=== PATIENT | female | born 1995 | race Caucasian/White ===

== ENCOUNTER → 2018-03-26 16:54 | Outpatient (CLI) | payer OTHER, SELFPAY ==
[2015-02-24 20:43] VITALS: BMI 30.2
[2018-03-26 18:17] LABS: Follicle Stimulating Hormone 6.4 mIU/mL; Luteinizing Hormone 12.2 mIU/mL; Prolactin 16.5 ng/mL
[2018-03-30 14:07] LABS: Testosterone, Free 1.37 ng/dL (0.10-0.85); Testosterone, Total 66 ng/dL (8-48)
[2018-03-30 20:30] LABS: Testosterone, % Free 2.08 % (0.50-2.80)
[2018-04-02 09:11] LABS: HPV Reflexed? NOT INDICATED
== END ==
PROVIDERS: Visit Provider Obstetrics & Gynecology
DX: N92.5 Other specified irregular menstruation (principal); Z12.4 Encounter for screening for malignant neoplasm of cervix
CPT/HCPCS: 83001; 83002; 84144; 84146; 84402; 84403; 88175; G0145

== ENCOUNTER → 2018-06-04 16:15 | Outpatient (CLI) | payer OTHER, SELFPAY ==
[2015-02-24 20:43] VITALS: BMI 30.2
[2018-06-04 18:16] LABS: Progesterone Level 0.44 ng/mL (See Comment)
== END ==
PROVIDERS: Visit Provider Obstetrics & Gynecology
DX: N92.5 Other specified irregular menstruation (principal)
CPT/HCPCS: 36415; 84144

== ENCOUNTER → 2018-07-19 | Outpatient (CLI) | payer OTHER, SELFPAY ==
[2015-02-24 20:43] VITALS: BMI 30.2
[2018-07-19 16:30] LABS: Progesterone Level 3.78 ng/mL (See Comment)
== END | disposition home or self-care (01) ==
LOC: WOBLAB 14:33
PROVIDERS: Visit Provider Obstetrics & Gynecology
DX: N92.5 Other specified irregular menstruation (principal)
CPT/HCPCS: 36415; 84144

== ENCOUNTER → 2018-08-16 | Outpatient (CLI) | payer OTHER, SELFPAY ==
[2018-08-16 16:09] LABS: Progesterone Level 0.52 ng/mL (See Comment)
== END | disposition home or self-care (01) ==
LOC: WOBLAB 13:12
PROVIDERS: Visit Provider Obstetrics & Gynecology
DX: E28.2 Polycystic ovarian syndrome (principal)
CPT/HCPCS: 36415; 84144

== ENCOUNTER → 2019-04-09 12:32 | Outpatient (CLI) | payer OTHER, SELFPAY ==
[2019-04-09 11:22] VITALS: BMI 30.2
[2019-04-09 15:55] LABS: Chlamydia Trachomatis by PCR Negative (Negative); Neisserai gonorrhoeae by PCR Negative (Negative); Probe Check PASS; Sample Adequacy Control PASS; Specimen Processing Control PASS
== END ==
PROVIDERS: PCP Student in an Organized Health Care Education/Training Program; Referring Provider Nurse Practitioner Women's Health; Visit Provider Nurse Practitioner Women's Health
DX: Z34.00 Encounter for supervision of normal first pregnancy, unspecified trimester (principal)
CPT/HCPCS: 87086; 87088; 87491; 87591

== ENCOUNTER → 2019-05-09 | Outpatient (CLI) | payer OTHER, SELFPAY ==
[2019-04-09 11:22] VITALS: BMI 30.2
[2019-05-09 11:28] LABS: Absolute Lymphocyte Count 2.44 X10^3/uL (0.83-4.51); Absolute Neutrophil Count 6.3 X10^3/uL (2.0-7.7); Basophil# 0.02 X10^3/uL; Basophil% 0.2 % (0-1); Eosinophils% 1.1 % (0-5); Hematocrit 34.4 % (37-47); Hemoglobin 12.1 g/dL (12.0-15.0); Lymphocyte # 2.44 X10^3/ul (4.0); Lymphocyte % 25.7 % (19-41); Mean Corp Hgb Conc 35.2 g/dL (32-36); Mean Corpuscular Hgb 31.1 pg (27.0-32.0); Mean Corpuscular Volume 88.4 fL (81-99); Mean Platelet Vol. 9.2 fl (6.2-12.0); Monocyte# 0.55 X10^3/uL; Monocyte% 5.8 % (0-10); NRBC Flagged by Analyzer 0 % (0-5); Neutrophil # 6.32 X10^3/uL (2.7-7.7); Neutrophil % 66.7 % (47-70); Platelet Count 278 K/mm3 (150-450); RBC Distribution Width CV 12.2 % (11.6-14.6); RBC Distribution Width SD 39.1 fl (35.1-43.9); Red Blood Count 3.89 M/mm3 (4.2-5.4); White Blood Count 9.5 K/mm3 (4.4-11.0)
[2019-05-09 11:37] LABS: Glucose Challenge Gest 1H 50g 126 mg/dL (70-140)
[2019-05-09 12:23] LABS: Amphetamine Urine VISTA NEGATIVE (<1000 ng/mL); Barbiturate Urine VISTA NEGATIVE (< 200 ng/mL); Benzodiazepine Urine VISTA NEGATIVE (< 200 ng/mL); Cocaine Urine VISTA NEGATIVE (< 300 ng/mL); Ecstacy Urine VISTA NEGATIVE (< 500 ng/mL); Methadone Urine VISTA NEGATIVE (< 300 ng/mL); PCP Urine VISTA NEGATIVE (< 25 ng/mL); THC Urine VISTA NEGATIVE (< 50 ng/mL); Vista UDS pH Range 7
[2019-05-09 12:32] LABS: HIV - WCH Non-Reactive (Nonreactive); Hepatitis B Surface Antigen Non-Reactive (Nonreactive); Hepatitis C Antibody Non-Reactive (Nonreactive); Rubella IgG 142.2 IU/mL
[2019-05-15 01:05] LABS: Rapid Plasmin Reagin (RPR) NONREACTIVE (NONREACTIVE)
== END | disposition home or self-care (01) ==
LOC: PAVLAB 10:56
PROVIDERS: Nurse Practitioner Women's Health; PCP Student in an Organized Health Care Education/Training Program; Referring Provider Obstetrics & Gynecology; Visit Provider Obstetrics & Gynecology
DX: O99.89 Other specified diseases and conditions complicating pregnancy, childbirth and the puerperium (principal); Z20.821 Contact with and (suspected) exposure to Zika virus; Z3A.00 Weeks of gestation of pregnancy not specified
CPT/HCPCS: 36415; 80307; 82950; 85025; 86592; 86703; 86762; 86803; 86850; 86900; 86901; 87340

== ENCOUNTER → 2019-06-06 | Outpatient (CLI) | payer OTHER, SELFPAY ==
[2019-06-06 10:46] VITALS: BMI 30.2
== END | disposition home or self-care (01) ==
PROVIDERS: PCP Student in an Organized Health Care Education/Training Program; Referring Provider Obstetrics & Gynecology; Visit Provider Obstetrics & Gynecology
DX: Z36.9 Encounter for antenatal screening, unspecified (principal)
CPT/HCPCS: 36415

== ENCOUNTER → 2019-08-28 | Outpatient (CLI) | payer OTHER, SELFPAY ==
[2019-07-30 11:21] VITALS: BMI 30.2
[2019-08-28 12:45] LABS: Absolute Lymphocyte Count 2.32 X10^3/uL (0.83-4.51); Absolute Neutrophil Count 7.8 X10^3/uL (2.0-7.7); Basophil# 0.02 X10^3/uL; Basophil% 0.2 % (0-1); Eosinophil# 0.04 X10^3/uL; Eosinophils% 0.4 % (0-5); Hematocrit 29.3 % (37-47); Hemoglobin 10.1 g/dL (12.0-15.0); Lymphocyte # 2.32 X10^3/ul (4.0); Lymphocyte % 21.4 % (19-41); Mean Corp Hgb Conc 34.5 g/dL (32-36); Mean Corpuscular Hgb 31.9 pg (27.0-32.0); Mean Corpuscular Volume 92.4 fL (81-99); Mean Platelet Vol. 9.2 fl (6.2-12.0); Monocyte# 0.52 X10^3/uL; Monocyte% 4.8 % (0-10); NRBC Flagged by Analyzer 0 % (0-5); Neutrophil # 7.79 X10^3/uL (2.7-7.7); Neutrophil % 71.7 % (47-70); Platelet Count 245 K/mm3 (150-450); RBC Distribution Width CV 12.9 % (11.6-14.6); RBC Distribution Width SD 42.9 fl (35.1-43.9); Red Blood Count 3.17 M/mm3 (4.2-5.4); White Blood Count 10.9 K/mm3 (4.4-11.0)
[2019-08-28 13:00] LABS: Glucose Challenge Gest 1H 50g 135 mg/dL (70-140)
== END | disposition home or self-care (01) ==
LOC: PAVLAB 12:32
PROVIDERS: PCP Student in an Organized Health Care Education/Training Program; Referring Provider Obstetrics & Gynecology; Visit Provider Obstetrics & Gynecology
DX: Z34.01 Encounter for supervision of normal first pregnancy, first trimester (principal)
CPT/HCPCS: 36415; 82950; 85025

== ENCOUNTER → 2019-09-01 09:50 | Outpatient (CLI) | payer OTHER, SELFPAY ==
[2019-08-28 12:51] VITALS: BMI 30.2
[2019-09-01 11:22] LABS: Glucose GTT-Gestation. Fasting 95 mg/dL (<105)
[2019-09-01 11:36] LABS: Glucose GTT-Gestational 1 Hr 194 mg/dL (<190)
[2019-09-01 12:58] LABS: Glucose GTT-Gestational 2 Hr 166 mg/dL (<165)
[2019-09-01 14:30] LABS: Glucose GTT-Gestational 3 Hr 132 L (<145)
== END ==
PROVIDERS: PCP Student in an Organized Health Care Education/Training Program; Referring Provider Obstetrics & Gynecology; Visit Provider Obstetrics & Gynecology
DX: O99.810 Abnormal glucose complicating pregnancy (principal); Z3A.00 Weeks of gestation of pregnancy not specified
CPT/HCPCS: 36415; 82951; 82952

== ENCOUNTER → 2019-10-07 | Outpatient (CLI) | payer OTHER, SELFPAY ==
[2019-10-03 08:09] VITALS: BMI 39.9
[2019-10-03 16:03] VITALS: BMI 39.9
--- NOTE | 2019-10-07 08:00 | US_ITS ---
STUDY: SECOND AND THIRD TRIMESTER OBSTETRICAL ULTRASOUND - LIMITED REASON FOR EXAM: Female, 24 years old GROWTH -- HX OF DIABETES LMP: February 10, 2019 PRIOR ULTRASOUND: None. TECHNIQUE: Transabdominal TECHNICAL QUALITY: Adequate. FINDINGS: There is a single intrauterine fetus. The fetus is in a cephalic presentation. There is demonstrated cardiac activity with a heart rate of 156 bpm. There is a normal amniotic fluid volume. The largest amniotic fluid pocket measures 5.15 cm. The amniotic fluid index (MODESTA) is 19.24 cm. The placenta is posterior. There are Grade 1 placental changes. There is nonvisualization of the cervix for the bladder was not filled at the time of the examination. BIOMETRY: BPD: 8.69 cm: 35 weeks, 0 days HC: 31.47 cm: 35 weeks, 2 days AC: 30.19 cm: 34 weeks, 1 days FL: 6.59 cm: 33 weeks, 6 days Age by LMP: 34 weeks, 1 days. MELISSA by LMP: November 17, 2019. age by current US: 34 weeks, 4 days. MELISSA by current US: November 14, 2019. Estimated weight: 2400 grams, +/- 355 grams, 48.92 percentile. US/OB Limited With Biometrics IMPRESSION: Single intrauterine with an estimated gestational age by ultrasound of 34 weeks and 4 days and an MELISSA of November 14, 2019. Electronically Signed: Ranjana Lynn MD at 20:49 EDT Tel , Service support ,
== END | disposition home or self-care (01) ==
LOC: OPUS 08:00
PROVIDERS: PCP Student in an Organized Health Care Education/Training Program; Referring Provider Obstetrics & Gynecology; Visit Provider Obstetrics & Gynecology
DX: O24.419 Gestational diabetes mellitus in pregnancy, unspecified control (principal); Z3A.00 Weeks of gestation of pregnancy not specified
CPT/HCPCS: 76816

== ENCOUNTER 2019-10-08 10:30 | Outpatient (RCR) | payer OTHER, SELFPAY ==
[2019-08-28 12:51] VITALS: BMI 30.2
[2019-09-09 14:55] VITALS: BMI 30.2
== END 2019-10-08 23:59 | disposition home or self-care (01) ==
LOC: DC 10:30
PROVIDERS: PCP Student in an Organized Health Care Education/Training Program; Visit Provider Nurse Practitioner Women's Health
DX: Z71.3 Dietary counseling and surveillance (principal); O24.419 Gestational diabetes mellitus in pregnancy, unspecified control; Z3A.00 Weeks of gestation of pregnancy not specified
CPT/HCPCS: 97802; G0108

== ENCOUNTER → 2019-10-10 | Outpatient (CLI) | payer OTHER, SELFPAY ==
[2019-10-10 08:51] VITALS: BMI 39.9
[2019-10-10 10:12] LABS: Absolute Lymphocyte Count 2.47 X10^3/uL (0.83-4.51); Absolute Neutrophil Count 6.1 X10^3/uL (2.0-7.7); Basophil# 0.02 X10^3/uL; Basophil% 0.2 % (0-1); Eosinophil# 0.08 X10^3/uL; Eosinophils% 0.9 % (0-5); Hematocrit 32.4 % (37-47); Hemoglobin 11.1 g/dL (12.0-15.0); Lymphocyte # 2.47 X10^3/ul (4.0); Lymphocyte % 26.5 % (19-41); Mean Corp Hgb Conc 34.3 g/dL (32-36); Mean Corpuscular Hgb 31.4 pg (27.0-32.0); Mean Corpuscular Volume 91.8 fL (81-99); Mean Platelet Vol. 10.1 fl (6.2-12.0); Monocyte# 0.51 X10^3/uL; Monocyte% 5.5 % (0-10); NRBC Flagged by Analyzer 0 % (0-5); Neutrophil % 65.4 % (47-70); Platelet Count 227 K/mm3 (150-450); RBC Distribution Width CV 13.6 % (11.6-14.6); RBC Distribution Width SD 44.8 fl (35.1-43.9); Red Blood Count 3.53 M/mm3 (4.2-5.4); White Blood Count 9.3 K/mm3 (4.4-11.0)
== END | disposition home or self-care (01) ==
LOC: LAB 09:43
PROVIDERS: PCP Student in an Organized Health Care Education/Training Program; Referring Provider Obstetrics & Gynecology; Visit Provider Obstetrics & Gynecology
DX: O99.013 Anemia complicating pregnancy, third trimester (principal); D64.9 Anemia, unspecified; Z3A.00 Weeks of gestation of pregnancy not specified
CPT/HCPCS: 36415; 85025

== ENCOUNTER → 2019-10-17 | Outpatient (CLI) | payer OTHER, SELFPAY ==
[2019-10-13 13:55] VITALS: BMI 39.9
[2019-10-17 08:48] VITALS: BMI 39.9
--- NOTE | 2019-10-17 16:11 | US_ITS ---
STUDY: SECOND AND THIRD TRIMESTER OBSTETRICAL ULTRASOUND REASON FOR EXAM: Female, 24 years old. MODESTA only. LMP: 02/10/2019. TECHNIQUE: Transabdominal TECHNICAL QUALITY: Adequate. PRIOR ULTRASOUND: 10/07/2019. FINDINGS: There is a single intrauterine fetus. The fetus is in a cephalic presentation. There is demonstrated cardiac activity with a heart rate of 149 bpm. There is a normal amniotic fluid volume. The largest amniotic fluid pocket measures 5.67 cm. The amniotic fluid index (MODESTA) is 18.1 cm. The placenta is posterior in location and is not low lying. There are Grade 2 placental changes. The cervix measures 3.2 cm in length. The adnexal regions are not visualized. age by prior US: 36 weeks, 0 days. MELISSA by prior US: 11/14/2019. Age by LMP: 35 weeks, 4 days. MELISSA by LMP: 11/17/2019. US/OB Limited (No Biometrics) IMPRESSION: 1. Live single intrauterine in cephalic presentation. 2. MODESTA of 18.1 cm. 3. Posterior grade 2 placenta. 4. Closed cervix 3.2 cm. Electronically Signed: Du Borja DO at 16:59 EDT Tel [phone], Service support ,
== END | disposition home or self-care (01) ==
LOC: US 16:08
PROVIDERS: PCP Student in an Organized Health Care Education/Training Program; Referring Provider Obstetrics & Gynecology; Visit Provider Obstetrics & Gynecology
DX: Z36.89 Encounter for other specified antenatal screening (principal)
CPT/HCPCS: 76815

== ENCOUNTER → 2019-10-21 | Outpatient (CLI) | payer OTHER, SELFPAY ==
[2019-10-13 13:55] VITALS: BMI 39.9
[2019-10-21 08:16] VITALS: BMI 39.9
--- NOTE | 2019-10-21 11:28 | US_ITS ---
STUDY: SECOND AND THIRD TRIMESTER OBSTETRICAL ULTRASOUND - LIMITED REASON FOR EXAM: Female, 24 years old MODESTA ONLY LMP: 02/04/2019. PRIOR ULTRASOUND: Comparison is made with prior study dated 10/17/2019. TECHNIQUE: Transabdominal TECHNICAL QUALITY: Adequate. FINDINGS: There is a single intrauterine fetus. The fetus is in a cephalic presentation. There is demonstrated cardiac activity with a heart rate of 143 bpm. There is a normal amniotic fluid volume. The largest amniotic fluid pocket measures 5.2 cm. The amniotic fluid index (MODESTA) is 18.2 cm. The placenta is posterior and fundal in location and is not low lying. There are Grade 2 placental changes. The cervix was not measured due to the head position. Age by LMP: 37 weeks, 0 days. MELISSA by LMP: 11/11/2019.. US/OB Limited (No Biometrics) IMPRESSION: Normal amniotic fluid. Electronically Signed: Raj Barlow, at 13:57 EDT , Service support ,
== END | disposition home or self-care (01) ==
LOC: US 11:28
PROVIDERS: PCP Student in an Organized Health Care Education/Training Program; Referring Provider Obstetrics & Gynecology; Visit Provider Obstetrics & Gynecology
DX: O24.419 Gestational diabetes mellitus in pregnancy, unspecified control (principal); Z3A.00 Weeks of gestation of pregnancy not specified
CPT/HCPCS: 76815

== ENCOUNTER → 2019-10-24 | Outpatient (CLI) | payer OTHER, SELFPAY ==
[2019-10-24 08:07] VITALS: BMI 41.1
== END | disposition home or self-care (01) ==
LOC: LABSPEC 11:44
PROVIDERS: PCP Student in an Organized Health Care Education/Training Program; Referring Provider Obstetrics & Gynecology; Visit Provider Obstetrics & Gynecology
DX: O09.90 Supervision of high risk pregnancy, unspecified, unspecified trimester (principal)
CPT/HCPCS: 87081

== ENCOUNTER 2019-10-26 12:30 | Inpatient (IN) | payer OTHER, SELFPAY ==
[2019-10-24 08:07] VITALS: BMI 41.1
[2019-10-26] VITALS (42 sets, daily range): BP systolic 118–153; BP diastolic 57–85; PULSE 62–92; TEMP 36.4–37.1; O2SAT 92–100; BMI 41.6
[2019-10-26 12:20] LABS: ROM Internal Control Test YES-OK TO RESULT pt. (Internal QC); ROM Patient Test POSITIVE (Negative)
[2019-10-26] MEDS: Lactated Ringers 1,000 ML 50 ML IV (12:45)
[2019-10-26 13:13] LABS: Absolute Lymphocyte Count 2.53 X10^3/uL (0.83-4.51); Basophil# 0.02 X10^3/uL; Basophil% 0.2 % (0-1); Eosinophil# 0.06 X10^3/uL; Eosinophils% 0.6 % (0-5); Hematocrit 33.1 % (37-47); Hemoglobin 11.5 g/dL (12.0-15.0); Lymphocyte # 2.53 X10^3/ul (4.0); Lymphocyte % 27.2 % (19-41); Mean Corp Hgb Conc 34.7 g/dL (32-36); Mean Corpuscular Hgb 31.3 pg (27.0-32.0); Mean Corpuscular Volume 90.2 fL (81-99); Mean Platelet Vol. 10.5 fl (6.2-12.0); Monocyte# 0.47 X10^3/uL; NRBC Flagged by Analyzer 0 % (0-5); Neutrophil # 6.03 X10^3/uL (2.7-7.7); Neutrophil % 64.9 % (47-70); Platelet Count 225 K/mm3 (150-450); RBC Distribution Width CV 13.7 % (11.6-14.6); RBC Distribution Width SD 44.9 fl (35.1-43.9); Red Blood Count 3.67 M/mm3 (4.2-5.4); White Blood Count 9.3 K/mm3 (4.4-11.0)
[2019-10-26] MEDS: Oxytocin 30 units/NS 500 ml 30 UNITS/500 ML IV.SOLN IV (13:34)
[2019-10-26 13:36] LABS: Bedside Glucose 94 mg/dL (70-110)
--- NOTE | 2019-10-26 15:11 | HP.PCM_ITS ---
- Problem List (1) premature rupture of membranes (PPROM) with unknown onset of labor Status: Acute (2) Supervision of high-risk Status: Acute Comment: PRR MELISSA 11/17/19 surprise Spouse Eduardo (3) Gestational diabetes Status: Acute Comment: sees endocrine on insulin. plan 2x weekly NSTs, weekly MODESTA, and growth us q 4 weeks. plan 39 week delivery (4) Anemia affecting in third trimester Status: Acute Comment: recommend iron, repeat 10/09 (5) Status: Acute Qualifiers: Comment: Previous negative carrier screen for patient and . low risk NIPT. AFP negative, anatomy normal (6) Depression, major, in partial remission Status: Acute Qualifiers: Comment: failed zoloft, on lexapro, Stable. encouraged counseling History Date of Admission: 10/26/19 Final MELISSA: 11/17/19 Gestational age: 36 Weeks and 6 Days History of this : This is a 24 year-old, G 1, P 0, at 36 weeks gestational age presents with P PROM. Patient states that 11:00 this morning she noticed clear loss of fluid and therefore presented for evaluation and had a positive ROM plus. Patient had occasional contractions but was dilated 370/-1. Patient has had a complicated by GDM A2 controlled with insulin. Blood sugars have been well controlled and testing reassuring. Medical History: Medical History (Last Reviewed 10/24/19 @ 08:08 by Barb Evans) Depression with anxiety F41.8 Infertility PCOS (polycystic ovarian syndrome) E28.2 Vitamin D deficiency E55.9 Surgical History: Surgical History (Last Reviewed 10/24/19 @ 08:08 by Barb Evans) History of tonsillectomy Z90.89 Allergies cefaclor [From [facility]] Allergy (Verified 10/24/19 08:07) Other Home Medications: Home Medications prenat.vits,esteban,pmg-[id number] 1 tab PO DAILY 04/09/19 escitalopram oxalate 20 mg tablet 20 mg PO DAILY #7 tab 09/04/19 ferrous sulfate 325 mg (65 mg iron) tablet 325 mg PO DAILY 09/09/19 blood sugar diagnostic See Rx Instructions .ROUTE .MEDSUPPLY #100 ea 09/25/19 lancets See Rx Instructions .ROUTE .MEDSUPPLY #200 ea 09/25/19 pen needle, diabetic 32 gauge x 5/32 See Rx Instructions .ROUTE .MEDSUPPLY #50 ea 09/26/19 breast pump See Rx Instructions .ROUTE .MEDSUPPLY #1 ea 10/01/19 insulin degludec 100 unit/mL (3 mL) subcutaneous pen 10 unit SC DAILY 10/03/19 Smoking Status: Never smoker Alcohol: None Number of Fetus(es): 1 NST - FHR Rate Baby A Baseline: 130 Variability:: Moderate Accelerations:: 15 x 15 Decelerations:: None NST Reactive:: Yes FHR Category:: Category I Uterine Activity:: irregular History Past Pregnancies: Past Pregnancies Delivery Date Name GA/ Weeks Outcome Route Wt Sex Labor Length Anesthesia Delivery Location Provider FOB Labs: Mom's Labs & Results 10/26/19 10/26/19 10/26/19 12:04 12:45 12:45 WBC 9.3 RBC 3.67 L Hgb 11.5 L Hct 33.1 L MCV 90.2 MCH 31.3 MCHC 34.7 RDW Std Deviation 44.9 H RDW Coeff of Negrita 13.7 Plt Count 225 MPV 10.5 Immature Gran % (Auto) 2.100 H Neut % (Auto) 64.9 Lymph % (Auto) 27.2 Shannon % (Auto) 5.0 Eos % (Auto) 0.6 Baso % (Auto) 0.2 Absolute Neuts (auto) 6.0 Absolute Lymphs (auto) 2.53 Nucleated RBC % 0 Vag Amniotic Fld Detect POSITIVE H POC Glucose Blood Type O POSITIVE Antibody Screen NEGATIVE 10/26/19 13:28 WBC RBC Hgb Hct MCV MCH MCHC RDW Std Deviation RDW Coeff of Negrita Plt Count MPV Immature Gran % (Auto) Neut % (Auto) Lymph % (Auto) Shannon % (Auto) Eos % (Auto) Baso % (Auto) Absolute Neuts (auto) Absolute Lymphs (auto) Nucleated RBC % Vag Amniotic Fld Detect POC Glucose 94 Blood Type Antibody Screen Course Did the patient receive Yes care? Labs Blood Type: O RH: POSITIVE RPR/VDRL/Syphilis Nonreactive Rubella status Immune HbSAg Negative Date Done: 05/09/19 Chlamydia Negative Gonorrhea Negative HIV/AIDS Non-Reactive Group B Strep: Negative Current Obstetrical History Gestational Diabetes Yes Incompetent Cervix No Infertility Yes IUGR No Macrosomia No Hypertension/Pre-eclampsia No Placenta Previa/Abruption No PTL/PROM No Uterine anomaly No Oligohydramnios No Polyhydramnios No Multiple gestation No Past Medical History Asthma No Diabetes No Hypertension No Heart disease No Mitral valve prolapse No Neurologic/Seizure disorder/ No Migraines Kidney disease No Liver disease No Varicosities No Clotting disorders/Hx of DVT No Thyroid Dysfunction No Other medical diseases No Psychiatric disorders No Major trauma No Abnormal PAP smear No Sleep apnea No Mammogram in the last 2 years No Medications Taken During Dose/Freq.: [Diabetic] insulin Last Date/Time of Medication daily Taken: [Diabetic] Social History Marital Status: Alleged father Eduardo Hx Smoking No Smoking Status Never smoker Expected Infant Delivery Method: Spontaneous Vaginal Review of Systems Constitutional: Denies: Fever, Malaise Eyes: Denies: Blurred vision, Vision Change HEENT: Denies: Head Aches, Visual Changes Cardiovascular: Denies: Chest Pain, Palpitations Respiratory: Denies: Cough, Shortness of Breath, Wheezing Gastrointestinal: Denies: Abdominal Pain, Diarrhea, Nausea, Vomiting Genitourinary: Denies: Dysuria, Hematuria Gynecological: Reports: Vaginal discharge - srom 11 am clear fluid Musculoskeletal: Denies: Joint Pain, Muscle pain Skin: Denies: Lesions, Rash Neurological: Denies: Blurred vision, Focal weakness, Headaches Psychiatric: Denies: Anxiety, Depression Endocrine: Denies: Heat/ Cold Intolerance Hematologic/ Lymphatic: Denies: Easy Bruising, Easy Bleeding Physical Exam Vitals: Vital Signs Temp Pulse BP Pulse Ox 98.7 F 86 128/79 H 98 10/26/19 13:40 10/26/19 14:45 10/26/19 14:45 10/26/19 13:40 General: Alert, Cooperative, No apparent distress HEENT: Atraumatic, Normocephalic. Negative for: Thyromegaly, Lymphadenopathy Cardiovascular: Regular rate Lungs: Normal air movement Abdomen: Soft, Non Tender, Gravid Neurological: Deep Tendon Reflexes 2+/4 and Symmetrical, Neuro grossly intact. Negative for: Clonus DIRECTORY ASSISTANCE OPERATOR: Normal external genitalia. Negative for: Vulvar lesions Estimated gestational size: Appropriate for gestational size Presentation: Cephalic Cervix Dilation (cm): 3 Station: -1 Effacement (%): 70 Assessment/Plan All Active Problems (Last Reviewed 10/24/19 @ 08:08 by Barb Evans) premature rupture of membranes (PPROM) with unknown onset of labor (Acute) Supervision of high-risk (Acute) Gestational diabetes (Acute) Anemia affecting in third trimester (Acute) (Acute) Depression, major, in partial remission (Acute) Abnormal glucose affecting (Resolved) PCOS (polycystic ovarian syndrome) (Ruled-out) This is a 24 year-old, at 36 weeks gestational age presents with PPROM Patient presents IOL, plan management for with Pitocin due to P PROM prior to the onset of labor. Recommend ampicillin and azithromycin due to P PROM Pain management: Plans epidural. GBS negative. Management of any complications: GDM A2 on insulin will follow diabetic protocol and start insulin drip PRN I have reviewed the PFSH and made any clinically relevant updates.
[2019-10-26 15:16] LABS: Bedside Glucose 70 mg/dL (70-110)
[2019-10-26] MEDS: Lactated Ringers 500 ML 999 ML IV (16:09)
[2019-10-26] MEDS: fentaNYL-bupivacaine (epidural) 100 ML BAG EPIDURAL (16:57)
[2019-10-26 18:15] LABS: Bedside Glucose 76 mg/dL (70-110)
--- NOTE | 2019-10-26 18:59 | PCM.OPRPT ---
Problem List (1) premature rupture of membranes (PPROM) with unknown onset of labor Status: Acute (2) Supervision of high-risk Status: Acute Comment: PRR MELISSA 11/17/19 surprise Spouse Eduardo (3) Gestational diabetes Status: Acute Comment: sees endocrine on insulin. plan 2x weekly NSTs, weekly MODESTA, and growth us q 4 weeks. plan 39 week delivery (4) Anemia affecting in third trimester Status: Acute Comment: recommend iron, repeat 10/09 (5) Status: Acute Qualifiers: Comment: Previous negative carrier screen for patient and . low risk NIPT. AFP negative, anatomy normal (6) Depression, major, in partial remission Status: Acute Qualifiers: Comment: failed zoloft, on lexapro, Stable. encouraged counseling Vaginal Delivery Maternal Presentation: Spontaneous Rupture of Membranes 24-year-old G1, P0 at 36 weeks 6 days presents in active labor Method of Induction: Pitocin Amniotic Membrane Rupture Type: Spontaneous at home Amniotic Fluid Description: Clear Final MELISSA: 11/17/19 Gestational age: 37 Weeks and 0 Days Date of Procedure: 10/26/19 Pre-Operative Diagnosis: P PROM GDM A2 Post-Operative Diagnosis: same Surgery/ Procedure Performed: Spontaneous Vaginal Delivery Type of Anesthesia: Epidural Description of Procedure: Patient began pushing and delivered the head in the KAVIN presentation. The head was delivered atraumatically and a loose nuchal cord ?1 was identified and easily reduced over the 's head. The anterior and posterior shoulders delivered without complication followed by the rest of the and the infant was placed on the maternal abdomen. Delayed cord clamping was employed for approximately 60 seconds. Cord was clamped and cut and gentle traction was applied to the cord and the placenta delivered spontaneously immediately following it was noted to be intact with three-vessel cord. The perineum and vagina were inspected and noted to have no laceration. EBL was 300 cc. Patient and infant tolerated delivery well. Placental Delivery Description: Spontaneous Placenta Disposition: [facility] Cord Vessel Description: 3 Vessels Cord Entanglement: Around neck x 1, loose Estimated Blood Loss: 300 Infant A gender: Female Episiotomy Description: None Laceration: None Medications given after delivery: IV Pitocin Complications: None Multi Select Codes - Urinary/Genital Urinary/Genital CPT Codes: 15603 Vaginal Delivery [facility]
[2019-10-26] MEDS: Oxytocin 30 units/NS 500 ml 30 UNITS/500 ML IV.SOLN 334 UNITS IV (20:10)
[2019-10-26] MEDS: Escitalopram Oxalate 20 MG Tablet PO (23:03)
[2019-10-27 00:15] VITALS: BP 134/82; PULSE 75; RESP 17; TEMP 36.5
[2019-10-27 00:21] LABS: Bedside Glucose 94 mg/dL (70-110)
[2019-10-27 00:21] LABS: Bedside Glucose 91 mg/dL (70-110)
[2019-10-27] MEDS: Naproxen 250 MG Tablet 500 MG PO ×2 (02:10→18:09)
[2019-10-27 03:45] VITALS: BP 130/84; PULSE 64; RESP 18; TEMP 36.8
--- NOTE | 2019-10-27 06:37 | PCM.PN.OB ---
Patient Problems: Active and Suspected Problems (Last Reviewed 10/24/19 @ 08:08 by Barb Evans) premature rupture of membranes (PPROM) with unknown onset of labor (Acute) Subjective: doing well no complaints pain controlled no CP SOB N V ambulating well tolerating po lochia moderate, going well - Physical Exam Vitals/I&O's: Vital Signs Temp Pulse Resp BP Pulse Ox 98.3 F 64 18 130/84 H 99 10/27/19 03:45 10/27/19 03:45 10/27/19 03:45 10/27/19 03:45 10/26/19 22:21 Oxygen Delivery Method Room Air Weight: 206 lb 5.643 oz Body Mass Index (BMI) 41.6 Intake and Output for Last 24 Hours 10/25/19 10/26/19 10/27/19 23:59 23:59 23:59 Intake Total 1899.37 / 1899.37 Output Total 1175 / 1175 Balance 1899.37 / 1899.37 -1175 / -1175 General: Alert, Oriented x3 Laboratory Results 10/26/19 12:04: Vag Amniotic Fld Detect POSITIVE H 10/26/19 12:45: WBC 9.3, RBC 3.67 L, Hgb 11.5 L, Hct 33.1 L, MCV 90.2, MCH 31.3, MCHC 34.7, RDW Std Deviation 44.9 H, RDW Coeff of Negrita 13.7, Plt Count 225, MPV 10.5, Immature Gran % (Auto) 2.100 H, Neut % (Auto) 64.9, Lymph % (Auto) 27.2, [place] % (Auto) 5.0, Eos % (Auto) 0.6, Baso % (Auto) 0.2, Absolute Neuts (auto) 6.0, Absolute Lymphs (auto) 2.53, Nucleated RBC % 0 10/26/19 12:45: Blood Type O POSITIVE, Antibody Screen NEGATIVE 10/26/19 13:28: POC Glucose 94 10/26/19 14:52: POC Glucose 70 10/26/19 18:05: POC Glucose 76 10/26/19 19:19: POC Glucose 91 10/26/19 20:13: POC Glucose 94 Current Medications Acetaminophen (Tylenol) 1,000 mg PO Q8H PRN PRN PRN Reason: Pain Score 1-3/10 Bisacodyl (Dulcolax) 10 mg RECTAL UD PRN PRN Reason: If no BM Dextrose (D50w Syringe) 0 gm IV X1 PRN; Protocol PRN Reason: Hypoglycemia Dibucaine (Dibucaine) 1 applic TOPICAL TID PRN PRN; Protocol PRN Reason: Discomfort Escitalopram Oxalate (Lexapro) 20 mg PO DAILY@2200 LORENZO Last Admin: 10/26/19 23:03 Dose: 20 mg Documented by: Ferrous Sulfate (Ferrous Sulfate) 325 mg PO DAILY@1200 LORENZO Glucagon () 1 mg IM .X1 PRN PRN Reason: Hypoglycemia Hydrocortisone (Hytone) 1 applic TOPICAL TID PRN PRN; Protocol PRN Reason: Discomfort Methylergonovine Maleate (Methergine) 0.2 mg IM X1 PRN PRN Reason: Excess bleeding/uterine atony Naproxen (Naprosyn) 500 mg PO Q8H PRN PRN PRN Reason: Pain Score 1-3/10 Last Admin: 10/27/19 02:10 Dose: 500 mg Documented by: Ondansetron HCl (Zofran) 4 mg IV Q4H PRN PRN PRN Reason: Nausea Oxycodone HCl (Oxyir) 5 - 10 mg PO Q4H PRN PRN PRN Reason: Pain Score 4-10/10 Multivit/Folic Acid/Iron (Prenatabs Fa) 1 tablet PO DAILY [facility] Senna/Docusate Sodium (Senokot-S, Sindy-Colace) 1 - 2 tablet PO DAILY PRN PRN PRN Reason: Constipation Simethicone (Mylicon) 80 mg PO PCHS PRN PRN Reason: Indigestion/Stomach pain Sodium Chloride () 5 - 15 ml IV UD PRN PRN Reason: SALINE FLUSH Medical Necessity - Tobacco Use Smoking Status: Never smoker Assessment/Plan All Active Problems (Last Reviewed 10/24/19 @ 08:08 by Barb Evans) premature rupture of membranes (PPROM) with unknown onset of labor (Acute) Supervision of high-risk (Acute) Gestational diabetes (Acute) Anemia affecting in third trimester (Acute) (Acute) Depression, major, in partial remission (Acute) Abnormal glucose affecting (Resolved) PCOS (polycystic ovarian syndrome) (Ruled-out) s/p PPD # 1 1. routine post delivery care 2. breast feeding- support given 3. rh positive 4. rubella immune gdma2- FBS checked
--- NOTE | 2019-10-27 06:38 | DCINST_ITS ---
<Ruthy Palacios - Last Filed: 10/27/19 06:38> Discharge Diet: No Restrictions Discharge Activity: Return to Normal Activity, May not drive while taking narcotic pain medications., May Shower May resume sexual activity in: 4-6 weeks Call your doctor if your incision/area has: Continuous Slow Oozing, Sudden Increased Bleeding, Increased Pain/ Swelling, Increased Redness, Foul Smelling Discharge Additional Instructions: If you experience any of the following, contact your healthcare provider. * Bleeding that soaks a pad every hour for 2 hours * Fever 100.4 or higher * Unrelieved incision or abdominal pain * Swelling, redness, discharge or bleeding from your incision or episiotomy site * Your incision begins to separate * Problems urinating (including inability to urinate or burning while urinating). * Visual changes * Severe headache * Flu-like symptoms * Pain or redness in one of both of your breasts * Pain, warmth, tenderness or swelling in your legs, especially the calf area * Frequent nausea and vomiting * Symptoms of depression or anxiety If you experience any of the following, call 911 or go to the nearest Emergency Room. * Chest pain * Problems breathing * Seizure activity * Partial or complete paralysis of a body part, slurred speech, weakness or drooping of the face, or a sudden inability to walk or hold your balance Allergies/Adverse Reactions: Allergies cefaclor [From Ceclor] Allergy (Verified 10/24/19 08:07) Other Medications to take at Discharge prenat.vits,esteban,rrf-pits-atqbj 1 tab PO DAILY 04/09/19 escitalopram oxalate 20 mg tablet 20 mg PO DAILY #7 tab 09/04/19 ferrous sulfate 325 mg (65 mg iron) tablet 325 mg PO DAILY 09/09/19 blood sugar diagnostic See Rx Instructions .ROUTE .MEDSUPPLY #100 ea 09/25/19 lancets See Rx Instructions .ROUTE .MEDSUPPLY #200 ea 09/25/19 pen needle, diabetic 32 gauge x 32 See Rx Instructions .ROUTE .MEDSUPPLY #50 ea 09/26/19 breast pump See Rx Instructions .ROUTE .MEDSUPPLY #1 ea 10/01/19 insulin degludec 100 unit/mL (3 mL) subcutaneous pen 10 unit SC DAILY 10/03/19 Please Follow Up With: Ruthy Palacios MD - [phone] When: Call to make an appointment with your doctor in 6 weeks. If you had elevated Blood pressure or 4th degree laceration you will need to be seen in 2 weeks. Primary Care Physician: Guero Bergeron [Primary Care Provider] - Test Results: Test results from this visit will be discussed in further detail at your follow- up appointment, if applicable. <Deanna Strong - Last Filed: 10/28/19 07:51> Additional Instructions: If you experience any of the following, contact your healthcare provider. * Bleeding that soaks a pad every hour for 2 hours * Fever 100.4 or higher * Unrelieved incision or abdominal pain * Swelling, redness, discharge or bleeding from your incision or episiotomy site * Your incision begins to separate * Problems urinating (including inability to urinate or burning while urinating). * Visual changes * Severe headache * Flu-like symptoms * Pain or redness in one of both of your breasts * Pain, warmth, tenderness or swelling in your legs, especially the calf area * Frequent nausea and vomiting * Symptoms of depression or anxiety If you experience any of the following, call 911 or go to the nearest Emergency Room. * Chest pain * Problems breathing * Seizure activity * Partial or complete paralysis of a body part, slurred speech, weakness or drooping of the face, or a sudden inability to walk or hold your balance Test Results: Test results from this visit will be discussed in further detail at your follow- up appointment, if applicable.
[2019-10-27 06:55] LABS: Bedside Glucose 85 mg/dL (70-110)
[2019-10-27 08:00] VITALS: BP 125/78; PULSE 60; RESP 16; TEMP 36.4
[2019-10-27 12:15] VITALS: BP 133/84; PULSE 68; RESP 16; TEMP 36.6
[2019-10-27] MEDS: Prenatal Vits Tablet 1 TABLET PO (12:32)
[2019-10-27] MEDS: Ferrous Sulfate 325 MG Tablet PO (12:33)
[2019-10-27] MEDS: Senna/Docusate Sodium 1 Tablet PO (12:33)
[2019-10-27 16:32] VITALS: BP 122/72; PULSE 67; RESP 16; TEMP 36.8
[2019-10-27 20:45] VITALS: BP 130/80; PULSE 76; RESP 16; TEMP 37.1
[2019-10-27] MEDS: Acetaminophen 500 MG Tablet 1000 MG PO (21:05)
[2019-10-27] MEDS: Escitalopram Oxalate 20 MG Tablet PO (21:10)
[2019-10-28 03:35] VITALS: BP 129/88; PULSE 61; RESP 16; TEMP 36.6
--- NOTE | 2019-10-28 07:51 | PCM.PN.OB ---
Patient Problems: Active and Suspected Problems (Last Reviewed 10/24/19 @ 08:08 by Barb Evans) premature rupture of membranes (PPROM) with unknown onset of labor (Acute) Subjective: Doing well, no complaints.Pain controlled. Denies CP, SOB, N,V. Some tearfulness, baby in SCN, breathing issues, ? infection. Ambulating well, tolerating po. Lochia moderate, /pumping going well. - Physical Exam Vitals/I&O's: Vital Signs Temp Pulse Resp BP Pulse Ox 97.8 F 61 16 129/88 H 99 10/28/19 03:35 10/28/19 03:35 10/28/19 03:35 10/28/19 03:35 10/26/19 22:21 Oxygen Delivery Method Room Air Weight: 206 lb 5.643 oz Body Mass Index (BMI) 41.6 Intake and Output for Last 24 Hours 10/26/19 10/27/19 10/28/19 23:59 23:59 23:59 Intake Total 1899.37 / 1899.37 Output Total 1175 / 1175 Balance 1899.37 / 1899.37 -1175 / -1175 General: Oriented x3 Abdomen: Soft, Non Tender, - - FF below U Current Medications Acetaminophen (Tylenol) 1,000 mg PO Q8H PRN PRN PRN Reason: Pain Score 1-3/10 Last Admin: 10/27/19 21:05 Dose: 1,000 mg Documented by: Bisacodyl (Dulcolax) 10 mg RECTAL UD PRN PRN Reason: If no BM Dextrose (D50w Syringe) 0 gm IV X1 PRN; Protocol PRN Reason: Hypoglycemia Dibucaine (Dibucaine) 1 applic TOPICAL TID PRN PRN; Protocol PRN Reason: Discomfort Escitalopram Oxalate (Lexapro) 20 mg PO DAILY@2200 LORENZO Last Admin: 10/27/19 21:10 Dose: 20 mg Documented by: Ferrous Sulfate (Ferrous Sulfate) 325 mg PO DAILY@1200 LORENZO Last Admin: 10/27/19 12:33 Dose: 325 mg Documented by: Glucagon () 1 mg IM .X1 PRN PRN Reason: Hypoglycemia Hydrocortisone (Hytone) 1 applic TOPICAL TID PRN PRN; Protocol PRN Reason: Discomfort Methylergonovine Maleate (Methergine) 0.2 mg IM X1 PRN PRN Reason: Excess bleeding/uterine atony Naproxen (Naprosyn) 500 mg PO Q8H PRN PRN PRN Reason: Pain Score 1-3/10 Last Admin: 10/27/19 18:09 Dose: 500 mg Documented by: Ondansetron HCl (Zofran) 4 mg IV Q4H PRN PRN PRN Reason: Nausea Oxycodone HCl (Oxyir) 5 - 10 mg PO Q4H PRN PRN PRN Reason: Pain Score 4-10/10 Multivit/Folic Acid/Iron (Prenatabs Fa) 1 tablet PO DAILY LORENZO Last Admin: 10/27/19 12:32 Dose: 1 tablet Documented by: Senna/Docusate Sodium (Senokot-S, Sindy-Colace) 1 - 2 tablet PO DAILY PRN PRN PRN Reason: Constipation Last Admin: 10/27/19 12:33 Dose: 2 tablet Documented by: Simethicone (Mylicon) 80 mg PO PCHS PRN PRN Reason: Indigestion/Stomach pain Sodium Chloride () 5 - 15 ml IV UD PRN PRN Reason: SALINE FLUSH Medical Necessity - Tobacco Use Smoking Status: Never smoker Assessment/Plan All Active Problems (Last Reviewed 10/24/19 @ 08:08 by Barb Evans) premature rupture of membranes (PPROM) with unknown onset of labor (Acute) Supervision of high-risk (Acute) Gestational diabetes (Acute) Anemia affecting in third trimester (Acute) (Acute) Depression, major, in partial remission (Acute) Abnormal glucose affecting (Resolved) PCOS (polycystic ovarian syndrome) (Ruled-out) s/p PPD # 2 1. routine post delivery care 2. breast feeding- support given 3. rh positive 4. rubella immune 5. support given for anxiety, on lexapro 5. hotel status today
[2019-10-28 08:00] VITALS: BP 117/71; PULSE 61; RESP 18; TEMP 36.8
[2019-10-28] MEDS: Prenatal Vits Tablet 1 TABLET PO (13:35)
[2019-10-28] MEDS: Ferrous Sulfate 325 MG Tablet PO (13:35)
[2019-10-28 13:38] VITALS: BP 127/71; PULSE 61; RESP 18; TEMP 36.7
[2019-10-28] MEDS: Senna/Docusate Sodium 1 Tablet PO (13:42)
== END 2019-10-28 15:45 | disposition home or self-care (01) | DRG 805 ==
LOC: WPOUT 12:39 → WP 12:39
PROVIDERS: Admitting Provider Obstetrics & Gynecology; PCP Student in an Organized Health Care Education/Training Program; Visit Provider Obstetrics & Gynecology
DX: O42.913 Preterm premature rupture of membranes, unspecified as to length of time between rupture and onset of labor, third trimester (principal); O60.14X0 Preterm labor third trimester with preterm delivery third trimester, not applicable or unspecified; Z37.0 Single live birth; O69.81X0 Labor and delivery complicated by cord around neck, without compression, not applicable or unspecified; O24.424 Gestational diabetes mellitus in childbirth, insulin controlled; O99.02 Anemia complicating childbirth; D64.9 Anemia, unspecified; O99.344 Other mental disorders complicating childbirth; F32.4 Major depressive disorder, single episode, in partial remission; F41.9 Anxiety disorder, unspecified; O99.214 Obesity complicating childbirth; E66.01 Morbid (severe) obesity due to excess calories; Z3A.36 36 weeks gestation of pregnancy
CPT/HCPCS: 59050; 82962; 84112; 85025; 86850; 86900; 86901; 99218; J7120; G0378; J0290

== ENCOUNTER → 2019-11-22 | Outpatient (CLI) | payer OTHER, SELFPAY ==
[2019-10-31 13:49] VITALS: BMI 41.6
== END | disposition home or self-care (01) ==
LOC: TELEHEALTH 11-25 09:56
PROVIDERS: PCP Student in an Organized Health Care Education/Training Program; Referring Provider Obstetrics & Gynecology; Visit Provider Obstetrics & Gynecology
DX: O92.79 Other disorders of lactation (principal)
CPT/HCPCS: 96158

== ENCOUNTER → 2020-05-10 10:20 | Outpatient (CLI) | payer OTHER, SELFPAY ==
[2020-05-10 09:55] VITALS: BMI 34.7
== END ==
PROVIDERS: PCP Student in an Organized Health Care Education/Training Program; Referring Provider Obstetrics & Gynecology; Visit Provider Obstetrics & Gynecology
DX: Z13.29 Encounter for screening for other suspected endocrine disorder (principal)
CPT/HCPCS: 36415; 84443

== ENCOUNTER → 2020-07-27 16:00 | Outpatient (CLI) | payer OTHER, SELFPAY ==
[2020-07-27 15:27] VITALS: BMI 34.7
[2020-07-27 17:35] LABS: Estradiol 30.4 pg/mL; Follicle Stimulating Hormone 4.9 mIU/mL
[2020-08-02 16:05] LABS: Testosterone Free 1.7 pg/mL (0.0-4.2)
== END ==
PROVIDERS: PCP Student in an Organized Health Care Education/Training Program; Referring Provider Obstetrics & Gynecology; Visit Provider Obstetrics & Gynecology
DX: E28.2 Polycystic ovarian syndrome (principal)
CPT/HCPCS: 36415; 82627; 82670; 83001; 84146; 84402; 82626